=== PATIENT | male | born 1960 | race Caucasian/White ===

== ENCOUNTER 2023-11-27 09:11 | Emergency (ER) | payer MEDICARE, MEDICAID ==
[~2023-11-27] VITALS: Ht 180.3 cm; Wt 64.8 kg
[2023-11-27] MEDS ORDERED: ATOR10TA87 PO (10:06)
[2023-11-27] MEDS ORDERED: DONE5TAB7 PO (10:13)
[2023-11-27] MEDS ORDERED: CARB1TAB41 PO (10:13)
[2023-11-27] MEDS ORDERED: ESCI-8 PO (10:19)
[2023-11-27] MEDS ORDERED: LORA-268 PO (10:20)
[2023-11-27] MEDS ORDERED: OMEP40CA21 PO (10:20)
[2023-11-27] MEDS ORDERED: MIDAZolam 1 MG/ML 5ML VIAL IV ONE (10:30)
[2023-11-27] MEDS: normal saline 1000ML IV soln IVB ONE (10:34)
[2023-11-27] MEDS: MIDAZolam 5mg/ml 2ml vial IV ONE (10:44)
[2023-11-27 10:48] LABS: BASOPHILS % (AUTO) 0.2 % (0-1); EOSINOPHILS % (AUTO) 0 % (0-6); HEMATOCRIT 45.5 % (42.0-52.0); HEMOGLOBIN 15.2 g/dl (14.0-17.9); LYMPHOCYTES # (AUTO) 0.4 X10'3 (1.1-4.8); LYMPHOCYTES % (AUTO) 5.8 % (21-51); MEAN CORPUSCULAR HEMOGLOBIN 31.2 PG (27.0-31.0); MEAN CORPUSCULAR HGB CONC 33.5 g/dL (33.0-36.5); MEAN CORPUSCULAR VOLUME 93.2 FL (78-98); MEAN PLATELET VOLUME 8.9 FL (7.4-10.4); MONOCYTES # (AUTO) 0.4 X10'3 (0-0.9); MONOCYTES % (AUTO) 5.9 % (2-12); NEUTROPHILS # (AUTO) 6.7 X10'3 (1.8-7.7); NEUTROPHILS % (AUTO) 88.1 % (42-75); PLATELET COUNT 152 X10'3 (140-440); RED BLOOD COUNT 4.88 X10'6 (4.70-6.10); RED CELL DISTRIBUTION WIDTH 13.2 % (11.5-14.5); WHITE BLOOD COUNT 7.6 X10'3 (4.5-11.0)
[2023-11-27 10:54] LABS: APTT 26 SECONDS (22-32); INR 1.1 INR; PROTHROMBIN TIME 11.8 SECONDS (9.0-12.0)
[2023-11-27 10:58] LABS: ALBUMIN 3.8 G/DL (3.4-5.0); ANION GAP 7 (8-16); BLOOD UREA NITROGEN 23 MG/DL (7-18); BUN/CREATININE RATIO 25.6 (10.0-20.0); CALCIUM 9.2 MG/DL (8.5-10.1); CHLORIDE 105 MMOL/L (99-107); GLUCOSE 120 MG/DL (70-104); POTASSIUM 3.8 MMOL/L (3.5-5.1); SODIUM 141 MMOL/L (135-145); TOTAL CARBON DIOXIDE 28.6 MMOL/L (24-32); eCRCL 75 ML/MIN; eGFR 85 ML/MIN
[2023-11-27] MEDS: OLANZapine 5mg rapidly disint. tablet PO ONE (10:58)
[2023-11-27] MEDS: LIDOcaine 1% W/epiNEPHrine 1:100,000 20ml vial IJ ONE (11:40)
[2023-11-27] MEDS: TETanus/Pertussis (Acell)/Diphther VAC/PF (Tdap-Adult) 0.5ml syringe IMVAC ONE (12:04)
[2023-11-27] MEDS ORDERED: calcium gluconate inj. 1 GM in normal saline 100ml IV soln 100 ML IV ONE (14:30)
[2023-11-27 14:33] LABS: BILIRUBIN,URINE SMALL (Neg); CLARITY,URINE CLEAR (Clear); COLOR,URINE YELLOW (Yellow); GLUCOSE, URINE NEGATIVE (Neg); KETONES,URINE >=80 mg/dl (Neg); LEUKOCYTE ESTERASE ,URINE NEGATIVE (Neg); NITRITES, URINE NEGATIVE (Neg); OCCULT BLOOD,URINE NEGATIVE (Neg); PROTEIN,URINE NEGATIVE (Neg)
[2023-11-27 14:40] LABS: UA COLLECTION TYPE VOIDED
[2023-11-27] MEDS: dextrose 50%-water 50ml dispensing syringe IV ONE (15:09)
[2023-11-27] MEDS: insulin regular, human U-100 3ml vial - multi-dose IV ONE (15:09)
[2023-11-27] MEDS: CALCIUM GLUC 1gm/50ml NACL,iso 50 ML IV ONE (15:09)
[2023-11-27] MEDS: hydrocortisone sod succ/PF 100mg/2ml inj. IV ONE (15:09)
[2023-11-27] MEDS: sodium bicarbonate (8.4%) 1 mEq/ml syringe IV ONE (15:09)
[2023-11-27 16:58] VITALS: BP 167/92; PULSE 86; RESP 16; TEMP 97.8; O2SAT 98
== END 2023-11-27 17:00 ==
LOC: ER 09:12
DX: S01.81XA Laceration without foreign body of other part of head, initial encounter (principal); F03.90 Unspecified dementia, unspecified severity, without behavioral disturbance, psychotic disturbance, mood disturbance, and anxiety; Z79.899 Other long term (current) drug therapy; W18.30XA Fall on same level, unspecified, initial encounter; Y93.89 Activity, other specified; Y92.89 Other specified places as the place of occurrence of the external cause; Y99.8 Other external cause status
CPT/HCPCS: 12013; 36415; 70450; 72125; 80048; 81003; 82948; 84100; 84484; 85025; 85610; 85730; 90715; 93005; 96361; 96374; 99285; A6402; C1758; G0008; J2250; J7030; Z7610; 90471; A6449